=== PATIENT | female | born 1990 | race Caucasian/White ===

== ENCOUNTER 2023-09-23 09:51 | Inpatient (IN) ==
[~2023-09-23 09:51] MED LIST: ONDANSETRON INJ 2 MG/ML 2 ML VIAL IV PRN; PROMETHAZINE HCL 25 MG in SODIUM CHLORIDE 0.9% 50 ML IV PRN
--- NOTE | 2023-09-23 10:19 | History & Physical Report ---
Date of Service September 23, 2023 Assessment & Plan (1) Previous delivery affecting , antepartum: Plan[place] [facility] [place] [address] [place] [id number] Obstetrics Visit Signed Patient: DANIE MERCADO Service Date: 09/20/23 MR#: [id number] Ref Phy: [facility] Seg[facility] Acct ID:[id number] Leslie Phy: PCP,NO Date: 1990 Location: [facility].OBGYN cc: Bruna Segura MD~ *NOTICE TO RECEIVING CONSTITUTION PARTY/AGENCY This information is strictly Confidential and protected under [place] law. [place] law prohibits you from making any further disclosure of this information unless further disclosure is expressly permitted by the written consent of the person to whom it pertains or is authorized by law. A general authorization for the release of medical or other information is not sufficient for this purpose. Physician Practice ac cepts no responsibility if the information is made available to any other person, INCLUDING THE PATIENT. OB Problems & Plan (1) Previous delivery affecting , antepartum: Follow Up Follow Up: 1 Week (WERNER + NST) Medical Money Manager Money Manager Determination Visit Includes a Sensitive Exam of the Pt/Pt Requested: Yes Pt Informed of [facility]'s Recommendation for a Medical Money Manager: Yes Presence of a Medical Money Manager: Declines Visit TIM Calculator Estimated Delivery Date Method Current WG Current Estimate 09/27/23 LMP (Certain) 39w 0d Other Estimates 09/28/23 Ultrasound #1 38w 6d LMP: 12/21/22 : 2 Full term: 0 Premature: 1 Total Number of Induced Abortions: 0 Total Number of Spontaneous Abortions: 0 Ectopics: 0 Multiple births: 0 Number of Living Children: 1 and Delivery Plans Previous delivery ("Cervical insufficiency") Discussed options: Priscila / Vag progesterone / exp mgmt. Patient to consider and notify us of choice by 16wk. Prior @ 30 weeks in [place]. - Confirmed LTCS Report is in [place], hoping to receive soon from her mother who is looking for it at their home. Aware that in order to here, we do need the report showing LTCS; pt wants if possible. C/S SCHEDULED FOR 10/04/[address] MCCLOUD Hypothyroid *Check TFTs Q4wks AMA Weekly NST's @ 36 weeks Note I had a lengthy review of her records including a prior operative note I also discussed with him of my colleagues on the phone about the situation the patient does have I suspected low transverse section however this was done in [place] and I do not have a typical note is a would have in some other countries. I did offer her the option of trying to labor spontaneously I do not feel comfortable starting Pitocin at this stage as she is unfavorable she is ruptured membranes this has been confirmed with sterile spec and by ferning and positive nitrazine. We discussed the Pitocin can be used in the situation but it may increase the risk of uterine rupture 2-3 times and with her cervix being remote and not absolute certainty of the type of before I do not elect to use Pitocin induction. The patient except risks were reviewed Repeat section. The patient was counseled to the nature of the procedure including alternatives such as labor. Risks were discussed including bleeding infection injury to bowel bladder ureter vessels and even baby. The risks of internal organ injury were discussed as being higher with prior sections. Deep Vein Thrombosis, pulmonary embolus and breakdown of the incision discussed. Deep vein thrombosis pulmonary embolus hernia and failure of the incision to heal were discussed Patient verbalized understanding of this and was given ample time to ask questions Note marketing senior recruiter used for the entire conversation including consent patient declines tubal ligation History of Present Illness Primary Care Provider: NO PCP 39 weeks gestation presents with spontaneous rupture of membranes limited to no contraction activity noticed a gush of fluid at 4 AM and then called later and presented to the hospital of note she had a section in [place] in 2019 we have a limited operative note from that time it suggests a lower segment unclear if vertical or transverse. The patient does continue to leak fluid states her fetus is active she is GBS negative she has no headache Allergies Allergy/AdvReac Type Severity Reaction Status Date / Time No Known Allergies Allergy Verified 09/23/23 10:20 Home Medications Medication Instructions Recorded Confirmed Type prenat.vits,sheila,[id number] 1 tab PO DAILY 02/16/23 09/23/23 History levothyroxine 88 mcg tablet 88 mcg PO .COMPLEX #30 tabs 07/10/23 09/23/23 Rx ferrous sulfate [Iron (ferrous 325 mg PO DAILY 08/09/23 09/23/23 History sulfate)] Patient History Medical History History of chicken pox Surgical History (Updated 09/23/23 @ 10:10 by Sanam Pillai, RN) Previous section 2019 due to "placental insufficiency" performed in [place] Status post surgery Thumb surgery r/t fracture Family History Grandmother (Maternal) Osteoporosis Denies family history of Ovarian cancer Breast cancer Colorectal cancer Social History Smoking Status: Never smoker Do You Dip or Chew Tobacco: No; marital status: marital status details: Marshal (33) [phone] Current Living Situation: Spouse and Family Current Living Situation Comment: lives with spouse, son, no pets current occupational status: unemployed current occupation: homemaker Physical Exam Constitutional: WD/WN, vitals as above well developed and well nourished Respiratory: normal respiratory effort, lungs clear to auscultation normal respiratory effort Cardiovascular: RRR, no murmur, no edema Gastrointestinal (Abdomen): normal bowel sounds, soft, nontender, no hepatosplenomegaly Results & Data Vital Signs (Past 12 Hours) Vital Signs Pulse BP 09/23/23 10:15 110 H 151/102 H 09/23/23 10:00 107 H 140/97 Coding Level of Care Code None Diagnoses Previous delivery affecting , antepartum O34.219
[2023-09-23] MEDS ORDERED: LACTATED RINGER'S 1,000 ML IV SCH (10:30)
[2023-09-23] MEDS ORDERED: CITRIC ACID/SODIUM CITRATE 15 ML UDC PO STA (10:41)
[2023-09-23 10:45] LABS: Basophils # (auto) 0.03 K/uL (0.00-0.20); Basophils % (auto) 0.4 %; Eosinophils # (auto) 0.01 K/uL (0.00-0.50); Eosinophils % (auto) 0.1 %; Hematocrit (blood only) 37.2 % (37.0-47.0); Hemoglobin 12.4 g/dl (12.0-16.0); Immature Granulocytes # (auto) 0.03 K/uL (0.01-0.20); Immature Granulocytes % (auto) 0.4 %; Lymphocytes # (auto) 1.25 K/uL (1.20-3.40); Mean Corpuscular Hemoglobin 28.5 pg (25.0-34.0); Mean Corpuscular Hgb Conc 33.3 g/dL (32.0-36.0); Mean Corpuscular Volume 85.5 fL (80.0-100.0); Mean Platelet Volume 9.9 fL (9.4-12.4); Monocytes # (auto) 0.56 K/uL (0.11-0.59); Monocytes % (auto) 6.7 %; Neutrophils # (auto) 6.44 K/uL (1.40-6.50); Neutrophils % (auto) 77.4 %; Platelet Count 239 K/uL (130-400); RDW Coefficient of Variation 14.9 % (11.5-14.5); RDW Standard Deviation 45.8 fL (36.4-46.3); Red Blood Count 4.35 M/uL (4.20-5.40); White Blood Count 8.32 K/ul (4.8-10.8)
[2023-09-23] MEDS ORDERED: ceFAZolin 2000MG 2,000 MG/15 ML SYR IV SCH (10:45)
--- NOTE | 2023-09-23 10:48 | Anesthesiology Consultation ---
Date of Service September 23, 2023 Assessment & Plan (1) Encounter for pre-operative examination: Chart Review Chart Review: Acceptable Risk for Surgery History Surgery Operation Date: 09/23/23 10:30 Proposed Procedures p Section in LD - Hugo Porras MD, FACOG Allergies Allergy/AdvReac Type Severity Reaction Status Date / Time No Known Allergies Allergy Verified 09/23/23 10:20 Medications Home Medications Medication Instructions Recorded Confirmed Last Taken prenat.vits,sheila,[id number] 1 tab PO DAILY 02/16/23 09/23/23 09/23/23 levothyroxine 88 mcg tablet 88 mcg PO .COMPLEX #30 tabs 07/10/23 09/23/23 09/23/23 ferrous sulfate [Iron (ferrous 325 mg PO DAILY 08/09/23 09/23/23 09/22/23 sulfate)] Active Medications Generic Name Dose Route Start Last Admin Trade Name Freq PRN Reason Stop Dose Admin Lactated Ringer's 1,000 mls @ 999 mls/hr 09/23/23 10:30 09/23/23 10:39 Lr IV 09/23/23 11:30 999 mls/hr .Q1H1M KASEY Administration Past Medical History Medical History History of chicken pox Past Family History Family History Grandmother (Maternal) Osteoporosis Denies family history of Ovarian cancer Breast cancer Colorectal cancer Past Surgical History Surgical History Previous section 2019 due to "placental insufficiency" performed in [place] Status post surgery Thumb surgery r/t fracture Social History Smoking Status: Never smoker Do You Dip or Chew Tobacco: No Physical Exam Vital Signs Last Vital Signs Pulse 111 H 09/23/23 10:24 BP 141/94 H 09/23/23 10:24 Testing Laboratory Results 09/23/23 10:26
[2023-09-23 10:53] LABS: Albumin Level 3.4 gm/dl (3.4-5.0); Bilirubin,Total 0.3 mg/dl (0.2-1.0); Calcium 8.2 mg/dl (8.6-10.3); Potassium 3.8 mmol/L (3.5-5.1)
[2023-09-23 10:59] LABS: Albumin Globulin Ratio 1.1 (0.9-2); BUN Creatinine Ratio 13.2 (10-20); Creatinine Clr Calc Pharmacy 160.1 ml/min; Est GFR (African American) 142.6 ml/min; Globulin 3.2 gm/dl (2.5-4.0); Total Protein 6.6 gm/dl (6.0-8.3)
[2023-09-23] MEDS ORDERED: MoRPHine SULFATE PF 1 MG/ML 10 ML AMP/VIAL ONE (11:02)
[2023-09-23] MEDS ORDERED: ONDANSETRON INJ 2 MG/ML 2 ML VIAL IV PRN (11:48)
[2023-09-23] MEDS ORDERED: NALOXONE HCL 1 MG in SODIUM CHLORIDE 0.9% 1,000 ML IV PRN (11:48)
[2023-09-23] MEDS ORDERED: KETOROLAC 30 MG/ML VIAL IV PRN (11:48)
[2023-09-23] MEDS ORDERED: NALOXONE HCL 0.4 MG/1 ML VIAL/CARP IV PRN (11:48)
[2023-09-23] MEDS ORDERED: NALOXONE HCL 0.08 MG in SYRINGE 1.8 ML IV PRN (11:48)
[2023-09-23] MEDS ORDERED: diphenhydrAMINE 50 MG/ML VIAL IV PRN (11:48)
[2023-09-23] MEDS ORDERED: MoRPHine SULFATE 2 MG/ML CARP IV PRN (11:48)
[2023-09-23] MEDS ORDERED: PROMETHAZINE HCL 12.5 MG in SODIUM CHLORIDE 0.9% 50 ML IV PRN (11:48)
[2023-09-23] MEDS ORDERED: NALBUPHINE HCL 5 MG in SYRINGE 0 ML IV PRN (11:48)
[2023-09-23] MEDS ORDERED: LACTATED RINGER'S 500 ML IV PRN (11:48)
[2023-09-23] MEDS ORDERED: MoRPHine SULFATE PF 1 MG/ML 10 ML AMP/VIAL INT SPINAL ONE (11:48)
[2023-09-23] MEDS ORDERED: ePHEDrine sulfate 50 MG/ML AMP IV PRN (11:48)
[2023-09-23] MEDS ORDERED: OXYTOCIN 10 UNITS/ML VIAL ONE ×3 (11:55→12:24)
[2023-09-23] MEDS ORDERED: ONDANSETRON INJ 2 MG/ML 2 ML VIAL ONE (11:55)
[2023-09-23] MEDS ORDERED: METOCLOPRAMIDE HCL INJ 5 MG/ML 2 ML VIAL ONE (11:55)
[2023-09-23] MEDS ORDERED: PHENYLEPHRINE 100MCG/ML 10ML SYR IV ONE (11:55)
[2023-09-23] MEDS ORDERED: NO NARCOTICS OR SEDATIVES SCH (12:00)
[2023-09-23] MEDS ORDERED: SODIUM CHLORIDE 0.9% 1,000 ML IV SCH (12:00)
[2023-09-23] MEDS ORDERED: DC INTRASPINAL MORPHINE SCH (12:00)
--- NOTE | 2023-09-23 12:34 | Operative Report ---
[facility] Post Operative Report Pre & Post Diagnosis Operation Date: 09/23/23 10:30 Pre-Op Diagnosis: Intrauterine , previous section desires repeat Post-Op Diagnosis: same I identified the patient and participated in the time-out.: Yes Procedure Operation Date: 09/23/23 10:30 Actual Procedures p Repeat Section in LD for living female child at 1156(Bilateral) - Hugo Porras MD, FACOG Surgeon Hugo Porras MD, FACOG Tour Manager ZENA Reed Estimated Blood Loss 500 Findings Consistent with Post-Op Diagnosis Specimens Cord blood Cord gases Description of Procedure Regional anesthetic had been given by anesthesia patient was prepped and draped with a leftward tilt preoperative antibiotics had been given in appropriate timing by anesthesiology. Once the prep was allowed to fully dry timeout was performed. Pickups with teeth were used to test the incision area was found to be adequate for incision as the patient did not feel sharp pain. Scalpel was used to make a Pfannenstiel incision on the lower abdomen. We then cut through the subcutaneous fat down to the level of the anterior rectus sheath fascia this was cut in the midline and then extended laterally with the curved Correa scissors. At this stage we then placed 2 Anali clamps on the anterior aspect of the fascia. Using the curved Correa's we are able to dissect the fascia superiorly away from the rectus muscles. Care was taken to maintain hemostasis. Anali clamps were then placed to the inferior aspect of the anterior sheath of the fascia. Fascia was then dissected away from the rectus muscles inferiorly towards the pubic bone. A Anali was then placed in the midline both inferiorly and superiorly. This was to allow exposure by retraction rectus muscles were in the midline with were then able to cut through the peritoneum and then enter the peritoneal cavity. Opening was enlarged to allow exposure of the peritoneal cavity both superiorly and inferiorly. Once adequate space was obtained a bladder retractor was placed to expose the lower segment Metzenbaums were used to dissect the bladder flap inferiorly away from the uterus. This was done sharply bladder retractor was then repositioned to expose the lower segment of the uterus Fresh scalpel was used to make a low transverse incision on the uterus. Uterus was then entered bluntly with the operators finger, membranes ruptured and the opening was enlarged using the operators fingers bluntly pulling superiorly and inferiorly to allow exposure. Baby was delivered by first flexion of the head elevation of the head out of the pelvis and then pressure by the mobile unit assistant on the maternal abdomen. Baby's head was then delivered mouth and then nares were suctioned and then using gentle traction the baby was fully delivered. Live vigorous . Fluid was clear cord clamped and cut cord gases obtained cord blood obtained baby handed to pediatrics. Placenta removed was removed with traction we ensure the entire placenta was removed with a moist lap sponge into the uterus Uterus was then exteriorized. IV Pitocin had been started by anesthesia tone improved there were no extensions the uterus was then closed using 0 Monocryl in a 2 layer closure the first layer closed in a running locked fashion from left to right and then a second closure from left to right in a running nonlocked fashion. At this stage hemostasis was excellent. Uterus was placed back in the peritoneal cavity with suction irrigation out and inspection of the uterus at this stage revealed excellent hemostasis Retractors were removed urine color was clear at this stage of the case we inspected the rectus muscles they were hemostatic fascia was closed with 0 Vicryl subcutaneous fat was irrigated and closed with 3-0 Vicryl skin closed with 4-0 subcuticular Monocryl Note no significant adhesions uterus and bilateral adnexa were within normal limits I attest to the content of the Intraoperative Record and any orders documented therein. Any exceptions are noted below. OB Procedure Charges 73599
[2023-09-23 12:42] LABS: Base Excess Cord Arterial Bld 0.2 mEq/L (-9-1.8); Base Excess Cord Venous Blood -3.1 mEq/L (-7.7-1.9); CO2 Cord Arterial Blood 59 mmHg (39.1-73.5); Cord Venous Blood HCO3 23 mmol/L (18.4-26.8); Cord Venous Blood PCO2 45 mmHg (30.4-57.2); Cord Venous Blood PO2 28 mmHg (14.1-43.3); Cord Venous Blood pH 7.32 (7.20-7.44); HCO3 Cord Arterial Blood 28 mmol/L (19.7-28.5); O2 Saturation Cord Venous Bld < 60.0 % (<68); Oxygen Sat Cord Arterial Blood < 60.0 % (<60); PO2 Cord Arterial Blood < 20 mmHg (4.1-31.7); pH Cord Arterial Blood 7.29 (7.1-7.38)
[2023-09-23] MEDS ORDERED: BENZOCAINE 20% SPRY 85 APPLN/85 GM CAN EXT PRN (12:52)
[2023-09-23] MEDS ORDERED: SENNA 8.6 MG TAB PO PRN (12:52)
[2023-09-23] MEDS ORDERED: DIPHTHERIA/TETANUS/PERTUSSIS Vaccine (Tdap, Age 7+yrs) 0.5mL SYR/VL IM ONE (12:52)
[2023-09-23] MEDS ORDERED: HYDROCORTISONE ACETATE 25 MG SUPP PR PRN (12:52)
[2023-09-23] MEDS ORDERED: MAGNESIUM HYDROXIDE SUSP 30 ML UDC PO PRN (12:52)
[2023-09-23] MEDS: LEVOTHYROXINE SODIUM 88 MCG TABLET PO SCH (13:26)
[2023-09-23] MEDS: LACTATED RINGER'S 1,000 ML IV SCH ×2 (13:26→20:20)
[2023-09-23] MEDS: SIMETHICONE 80 MG CHEW PO SCH ×3 (13:27→20:20)
--- NOTE | 2023-09-23 15:07 | Anesthesiology Progress Note ---
Date of Service September 23, 2023 Anesthesia Post Procedure Vital Signs Vital Signs: Temp Pulse Resp BP Pulse Ox 09/23/23 14:41 70 99 09/23/23 14:37 67 123/72 09/23/23 14:36 70 99 09/23/23 14:31 68 99 09/23/23 14:26 69 121/84 99 09/23/23 14:21 75 99 09/23/23 14:16 67 118/84 99 09/23/23 14:11 73 98 09/23/23 14:07 71 115/86 09/23/23 14:06 77 98 09/23/23 14:01 67 98 09/23/23 13:57 93 H 124/83 09/23/23 13:56 90 98 09/23/23 13:51 87 97 09/23/23 13:47 83 130/69 09/23/23 13:46 78 98 09/23/23 13:41 64 98 09/23/23 13:37 68 123/74 09/23/23 13:36 36.5 C 09/23/23 13:36 69 98 09/23/23 13:31 73 98 09/23/23 13:26 16 09/23/23 13:26 75 123/74 97 09/23/23 13:21 66 98 09/23/23 13:16 16 09/23/23 13:16 83 133/75 96 09/23/23 13:11 73 97 09/23/23 13:07 82 132/73 09/23/23 13:06 16 09/23/23 13:06 81 95 09/23/23 13:01 80 95 09/23/23 12:57 90 133/83 09/23/23 12:56 16 09/23/23 12:56 92 H 95 09/23/23 12:51 86 96 09/23/23 12:46 16 09/23/23 12:46 93 H 126/74 95 09/23/23 12:45 95 H 94 09/23/23 12:41 91 H 97 09/23/23 12:36 36.4 C L 14 09/23/23 12:36 97 09/23/23 12:36 86 09/23/23 12:36 91 H 132/73 09/23/23 10:24 111 H 141/94 H 09/23/23 10:15 110 H 151/102 H 09/23/23 10:00 107 H 140/97 Pain Intensity Bilateral Abdomen: Pain Intensity: 2 Transfer of Care Handoff Completed per policy Notes Mental Status: alert / awake / arousable Patient Amnestic to Procedure: Yes Nausea / Vomiting: adequately controlled Pain: adequately controlled Airway Patency, RR, SpO2: stable & adequate BP & HR: stable & adequate Hydration State: stable & adequate Neuraxial Anesthesia: was administered and sensory block is resolving Anesthetic Complications: no major complications apparent
[2023-09-23] MEDS: OXYTOCIN 20 UNITS/LR 1,002 ML IV SCH (20:19)
[2023-09-23] MEDS: DOCUSATE SODIUM 100 MG CAP PO SCH (20:20)
[2023-09-24] MEDS ORDERED: diphenhydrAMINE Capsule 25 MG CAP PO PRN (05:49)
[2023-09-24] MEDS ORDERED: diphenhydrAMINE 50 MG/ML VIAL IV PRN (05:49)
[2023-09-24] MEDS ORDERED: KETOROLAC 30 MG/ML VIAL IV PRN (05:49)
[2023-09-24] MEDS ORDERED: oxyCODONE/ACETAMINOPHEN 5mg/325mg TAB PO PRN (05:49)
[2023-09-24] MEDS: LEVOTHYROXINE SODIUM 88 MCG TABLET PO SCH (06:23)
[2023-09-24] MEDS: LACTATED RINGER'S 1,000 ML IV SCH (06:23)
[2023-09-24] MEDS: OXYTOCIN 20 UNITS/LR 1,002 ML IV SCH (07:09)
--- NOTE | 2023-09-24 07:10 | Obstetrical Progress Note ---
Date of Service <Melanie [place] MD - Last Filed: 09/24/23 07:16> September 24, 2023 Assessment & Plan <Melanie [place] MD - Last Filed: 09/24/23 07:16> (1) Encounter for care after hospital delivery: Patient with the above mentioned history and findings was evaluated at bedside and found awake, alert, oriented in all spheres, afebrile, and in no acute distress. Vital signs showed no fever and blood pressures remained stable Her blood type is O positive and most recent hemoglobin is adequate at 12.4 g/dL. She is GBS negative and rubella immune. Overall, patient is doing well clinically. Will encourage ambulation as tolerated. Will advance diet to clear liquids and assess tolerance. Will continue routine pp care. All questions were answered. <Hugo Porras MD, FACOG - Last Filed: 09/24/23 07:37> (1) Encounter for care after hospital delivery: Subjective <Melanie [place] MD - Last Filed: 09/24/23 07:16> Nickie is a 33 y/o female who is POD #1 following repeat at 39 weeks. She reports feeling well overall this morning. Refers mild abdominal cramping & 2/10 pain well managed on analgesics. Has not been able to void spontaneously since urinary catheter was removed, but had good urine output when catheter was in. Has been able to ambulate some without associated lightheadedness or dizziness. She had some crackers and water yesterday, which she vomited. Has not had anything else to eat overnight, but does feel like she wants to eat something. Currently not nauseous. Has not yet passed gas or had a bowel movement. Has some persistent lochia with some improvement this morning. Currently . Constitutional: no fever, no chills or no sweats Denies shortness of breath or difficulty breathing. Cardiovascular: no chest pain or no palpitations Breast: no breast pain Genitourinary (female): no dysuria Neurologic: no headache(s) Denies changes in vision. Physical Exam <Melanie [place] MD - Last Filed: 09/24/23 07:16> General: Alert. Oriented to person, time, and place. Afebrile. No acute distress. Eyes: pupils equal and reactive to light bilaterally, extraocular movements intact. Cardiac: Regular rate and rhythm, no murmurs/rubs/gallops. Respiratory: Clear to auscultation bilaterally a/p, no wheezes/rales/rhonchi. No increased work of breathing. Symmetrical chest rise. No respiratory distress. Abdomen: Soft, nontender, nondistended. Bowel sounds present. Low transverse surgical scar clean, without surrounding erythema or suppuration, and healing well. Uterus: Uterine fundus firm, tender, and palpable below umbilicus. Lower Extremities: No lower extremity edema or swelling. No deep calf pain. Ruthy's negative bilaterally. Psych: Euthymic affect. Mood and affect congruence. Regular speech rate and content. Results & Data <Melanie [place] MD - Last Filed: 09/24/23 07:16> Vital Signs (Past 12 Hours) Vital Signs Temp Pulse Resp BP Pulse Ox O2 Del Method 09/24/23 07:03 36.5 C 89 18 108/67 94 Room Air 09/24/23 05:00 18 97 09/24/23 04:00 18 98 09/24/23 03:50 36.7 C 80 16 111/75 97 Room Air 09/24/23 03:00 16 96 09/24/23 02:05 18 96 09/24/23 01:00 18 98 09/24/23 00:00 18 96 09/23/23 23:10 18 97 09/23/23 23:10 36.7 C 91 H 18 135/86 97 Room Air 09/23/23 22:03 18 97 09/23/23 21:00 18 98 09/23/23 20:00 18 97 09/23/23 19:30 36.5 C 88 18 132/78 97 Room Air Supervising Physician <Hugo Porras MD, FACOG - Last Filed: 09/24/23 07:37> Co-Signing Physician Notes Resident Physician Supervision Note: I was present with Dr. [place] during the history and exam. I discussed the case with the resident and agree with the findings and plan as documented in the note. Any exceptions or clarifications are listed here: [None] Documented By: Hugo Porras MD, FACOG
[2023-09-24] MEDS: SIMETHICONE 80 MG CHEW PO SCH ×4 (07:13→19:29)
[2023-09-24] MEDS: DOCUSATE SODIUM 100 MG CAP PO SCH ×2 (07:13→19:29)
[2023-09-24] MEDS: PRENATAL VITAMIN 1 TAB PO SCH (07:13)
[2023-09-24] MEDS: FERROUS SULFATE 325 MG TAB PO SCH (07:13)
[2023-09-24 07:25] LABS: Basophils # (auto) 0.03 K/uL (0.00-0.20); Basophils % (auto) 0.4 %; Eosinophils # (auto) 0.03 K/uL (0.00-0.50); Eosinophils % (auto) 0.4 %; Hematocrit (blood only) 33.7 % (37.0-47.0); Immature Granulocytes # (auto) 0.03 K/uL (0.01-0.20); Immature Granulocytes % (auto) 0.4 %; Lymphocytes # (auto) 1.03 K/uL (1.20-3.40); Lymphocytes % (auto) 15.1 %; Mean Corpuscular Hemoglobin 28.1 pg (25.0-34.0); Mean Corpuscular Hgb Conc 32.6 g/dL (32.0-36.0); Mean Platelet Volume 9.7 fL (9.4-12.4); Monocytes # (auto) 0.47 K/uL (0.11-0.59); Monocytes % (auto) 6.9 %; Neutrophils # (auto) 5.21 K/uL (1.40-6.50); Neutrophils % (auto) 76.8 %; Platelet Count 160 K/uL (130-400); RDW Coefficient of Variation 14.8 % (11.5-14.5); RDW Standard Deviation 46.5 fL (36.4-46.3); Red Blood Count 3.92 M/uL (4.20-5.40)
[2023-09-24] MEDS: IBUPROFEN 600 MG TAB PO PRN ×4 (08:54→23:13)
[2023-09-24] MEDS ORDERED: bisacodyL 5 MG TABEC PO SCH (20:00)
[2023-09-25] MEDS: IBUPROFEN 600 MG TAB PO PRN ×3 (04:19→13:53)
[2023-09-25] MEDS: LEVOTHYROXINE SODIUM 88 MCG TABLET PO SCH (06:02)
[2023-09-25 06:23] LABS: Hemoglobin 10.7 g/dl (12.0-16.0)
--- NOTE | 2023-09-25 07:45 | Obstetrical Progress Note ---
Date of Service <Melanie [place] MD - Last Filed: 09/25/23 07:45> September 25, 2023 Assessment & Plan <Melanie [place] MD - Last Filed: 09/25/23 07:45> (1) Encounter for care after hospital delivery: Patient with the above mentioned history and findings was evaluated at bedside and found awake, alert, oriented in all spheres, afebrile, and in no acute distress. Vital signs showed no fever and blood pressures remained stable Her blood type is O positive and most recent hemoglobin is adequate at 10.7 g/dL. She is GBS negative and rubella immune. Overall, patient is doing well clinically and meeting desires milestones. Will discharge today. Discharge instructions discussed. She is to call to make an appointment with her OB in 6 weeks for routine pp evaluation. All questions were answered. <Licha Mccollum MD, FACOG - Last Filed: 09/25/23 07:52> (1) Encounter for care after hospital delivery: Subjective <Melanie [place] MD - Last Filed: 09/25/23 07:45> Nickie is a 33 y/o female who is POD #2 following repeat at 39 weeks. She reports feeling well overall this morning. Refers mild abdominal cramping & 2/10 pain well managed on analgesics. Voiding spontaneously. Has been able to ambulate some without associated lightheadedness or dizziness. Tolerating diet. Has passed gas but no bm yet. Has some persistent lochia with some improvement this morning. Currently . Constitutional: no fever, no chills or no sweats Denies shortness of breath or difficulty breathing. Cardiovascular: no chest pain or no palpitations Breast: no breast pain Genitourinary (female): no dysuria Neurologic: no headache(s) Denies changes in vision. Physical Exam <Melanie [place] MD - Last Filed: 09/25/23 07:45> General: Alert. Oriented to person, time, and place. Afebrile. No acute distress. Eyes: pupils equal and reactive to light bilaterally, extraocular movements intact. Cardiac: Regular rate and rhythm, no murmurs/rubs/gallops. Respiratory: Clear to auscultation bilaterally a/p, no wheezes/rales/rhonchi. No increased work of breathing. Symmetrical chest rise. No respiratory distress. Abdomen: Soft, nontender, nondistended. Bowel sounds present. Low transverse surgical scar clean, without surrounding erythema or suppuration, and healing well. Uterus: Uterine fundus firm, tender, and palpable below umbilicus. Lower Extremities: No lower extremity edema or swelling. No deep calf pain. Ruthy's negative bilaterally. Psych: Euthymic affect. Mood and affect congruence. Regular speech rate and content. Results & Data <Melanie [place] MD - Last Filed: 09/25/23 07:45> Vital Signs (Past 12 Hours) Vital Signs Temp Pulse Resp BP Pulse Ox O2 Del Method 09/24/23 23:10 36.4 C L 80 16 119/77 96 Room Air Supervising Physician <Licha Mccollum MD, FACOG - Last Filed: 09/25/23 07:52> Co-Signing Physician Notes Resident Physician Supervision Note: I was present with Dr. Greenwood during the history and exam. I discussed the case with the resident and agree with the findings and plan as documented in the note. Any exceptions or clarifications are listed here: doing well, eating, voiding, ambulating, pain well controlled. bleeding decreased. abd soft ff 2 down nt, incision cdi with dried steris. nt calves, pod #2 s/p c/s. will dc home, breast/rhpos/ri. checked on papdmp no issues. f/u 6wk pp. instructions reviewed. Documented By: Licha Mccollum MD, FACOG
[2023-09-25] MEDS: SIMETHICONE 80 MG CHEW PO SCH ×2 (08:21→13:00)
[2023-09-25] MEDS: PRENATAL VITAMIN 1 TAB PO SCH (08:21)
[2023-09-25] MEDS: FERROUS SULFATE 325 MG TAB PO SCH (08:21)
[2023-09-25] MEDS: DOCUSATE SODIUM 100 MG CAP PO SCH (08:21)
[2023-09-25] MEDS ORDERED: bisacodyL 10 MG SUPP PR PRN (12:31)
--- NOTE | 2023-09-27 12:51 | Discharge Summary ---
Date of Service September 27, 2023 Admission HPI Per Admitting Provider 39 weeks gestation presents with spontaneous rupture of membranes limited to no contraction activity noticed a gush of fluid at 4 AM and then called later and presented to the hospital of note she had a section in [place] in 2019 we have a limited operative note from that time it suggests a lower segment unclear if vertical or transverse. The patient does continue to leak fluid states her fetus is active she is GBS negative she has no headache Admission Exam (Per Admitting) Constitutional WD/WN, vitals as above well developed and well nourished Respiratory normal respiratory effort, lungs clear to auscultation normal respiratory effort Cardiovascular RRR, no murmur, no edema Gastrointestinal (Abdomen) normal bowel sounds, soft, nontender, no hepatosplenomegaly Discharge Data Consultations 09/23/23 10:15 Consult Anesthesiology Stat Procedures Performed Operation Date: 09/23/23 10:30 Actual Procedures p Repeat Section in LD for living female child at 1156(Bilateral) - Hugo Porras MD, FACOG Hospital Course (1) Encounter for care after hospital delivery: Patient with the above mentioned history and findings was evaluated at bedside and found awake, alert, oriented in all spheres, afebrile, and in no acute distress. Vital signs showed no fever and blood pressures remained stable Her blood type is O positive and most recent hemoglobin is adequate at 10.7 g/dL. She is GBS negative and rubella immune. Overall, patient is doing well clinically and meeting desires milestones. Will discharge today. Discharge instructions discussed. She is to call to make an appointment with her OB in 6 weeks for routine pp evaluation. All questions were answered. Supervising Physician Co-Signing Physician Notes Resident Physician Supervision Note: I was present with Dr. [place] during the history and exam. I discussed the case with the resident and agree with the findings and plan as documented in the note. Any exceptions or clarifications are listed here: doing well, eating, voiding, ambulating, pain well controlled. bleeding decreased. abd soft ff 2 down nt, incision cdi with dried steris. nt calves, pod #2 s/p c/s. will dc home, breast/rhpos/ri. checked on papdmp no issues. f/u 6wk pp. instructions reviewed. Documented By: Licha Mccollum MD, FACOG Coding Level of Care Code None Diagnoses Encounter for care after hospital delivery Z39.2
== END 2023-09-25 14:10 | disposition home or self-care (01) | DRG 788 ==
LOC: OPB 09:51 → 4S1 09:52 → 4E2 16:23
DX: O34.219 Maternal care for unspecified type scar from previous cesarean delivery; Z3A.39 39 weeks gestation of pregnancy; Z37.0 Single live birth